=== PATIENT | male | born 1955 | race Caucasian/White ===

== ENCOUNTER 2017-01-12 18:34 | Emergency (ER) | payer OTHER ==
[~2017-01-12] VITALS: Ht 167.6 cm; Wt 79.0 kg
[2017-01-12 18:42] VITALS: BP 106/63; PULSE 98; RESP 18; TEMP 98.4; O2SAT 96
[2017-01-12 18:52] VITALS: O2SAT 94
--- NOTE | 2017-01-12 18:57 | PD ---
HPI Chief Complaint: Alcohol/Drug Intoxication Time Seen by Provider: 18:51 Travel History International Travel<30 days: No Contact w/Intl Traveler<30days: No Traveled to known affect area: No History of Present Illness HPI Patient comes in by EMS after by since the patient laying on the ground. Patient states that he was drinking today to the point where he got drunk. Patient is uncertain how much he drank, because he does not keep track. Per EMS when they arrived patient is awake and alert stating he was just resting. Patient is uncertain as to what happened. Patient normally walks with a cane secondary to issues with his right lower extremity. Patient is uncertain of his last tetanus shot. Patient also complaining of pain around his left periorbital where there is an abrasion. Denies any headache, neck pain, back pain, chest pain, shortness of breath, nausea, vomiting, numbness or tingling anywhere, or fevers. PFSH Past Medical History Diminished Hearing: No Hypertension: Yes Tetanus Vaccination: < 5 Years Influenza Vaccination: Yes Past Surgical History Appendectomy: Yes Tonsillectomy: Yes Social History Alcohol Use: Yes (DAILY BEERS) Tobacco Use: Yes (1PACK A WEEK) Substance Use: No Allergies-Medications (Allergen,Severity, Reaction): Coded Allergies: No Known Allergies (Unverified , 01/12/17) Reported Meds & Prescriptions Reported Meds & Active Scripts Active No Active Prescriptions or Reported Medications Review of Systems ROS Limitations: Intoxication Except as stated in HPI: all other systems reviewed are Neg Physical Exam Exam Limitations: Intoxication Narrative GENERAL: Well-developed, overly nourished, in no acute distress, and non-ill appearing. Alcohol noted on breath. SKIN: Superficial abrasions noted left periorbital temporal aspect of the eyebrow and left elbow. HEAD: Atraumatic. Normocephalic. EYES: Pupils equal and round. EOMI. No scleral icterus. No injection or drainage. ENT: No nasal bleeding or discharge. Mucous membranes pink and moist. Hearing aids noted bilateral ears. NECK: Trachea midline. C-collar in place. CARDIOVASCULAR: Regular rate and rhythm. No murmur appreciated. RESPIRATORY: No accessory muscle use. No respiratory distress. Clear to auscultation. Breath sounds equal bilaterally. GASTROINTESTINAL: Abdomen soft, non-tender, nondistended. Hepatic and splenic margins not palpable. No pulsatile mass. MUSCULOSKELETAL: No obvious deformities. No clubbing. No cyanosis. No edema. Full range of motion. Shoulder:FROM equal BL with passive flexion, extension, Abduction, Adduction, internal/external rotation, and pronation/supination. Sensation equal BL deltoid muscles. Pulses equal BL distal to injury. Capillary refill less than 2 seconds distal to injury and equal BL. FROM distal to injury and equal BL. Strength distal to injury equal BL. NV intact distal to injury equal BL. Flexion and extension of thumb equal BL. Equal strength and movement with abduction/adductions of BL fingers. [employer] Person Dishwasher strength equal BL. NEUROLOGICAL: Awake and alert. No obvious cranial nerve deficits. Motor grossly within normal limits. Normal speech. PSYCHIATRIC: Appropriate mood and affect; insight and judgment normal. Data Data Last Documented VS Vital Signs Date Time Temp Pulse Resp B/P Pulse Ox O2 Delivery O2 Flow Rate FiO2 01/12/17 23:00 93 18 124/70 94 Room Air 01/12/17 19:35 2 01/12/17 18:42 98.4 Orders Complete Blood Count With Diff (01/12/17 18:46) Basic Metabolic Panel (Bmp) (01/12/17 18:46) Alcohol (Ethanol) (01/12/17 18:46) Prothrombin Time / Inr (Pt) (01/12/17 18:46) Act Partial Throm Time (Ptt) (01/12/17 18:46) Iv Access Insert/Monitor (01/12/17 18:46) Ecg Monitoring (01/12/17 18:46) Oximetry (01/12/17 18:46) Sodium Chloride 0.9% Flush (Ns Flush) (01/12/17 19:00) Ct Brain W/O Iv Contrast(Rout) (01/12/17 18:46) Ct Cerv Spine W/O Contrast (01/12/17 18:46) Ct Facial Bones W/O Iv Cont (01/12/17 18:46) Wound Care (01/12/17 18:54) Labs Laboratory Tests Test 01/12/17 19:00 White Blood Count 10.6 TH/MM3 Red Blood Count 4.57 MIL/MM3 Hemoglobin 15.0 GM/DL Hematocrit 43.2 % Mean Corpuscular Volume 94.4 FL Mean Corpuscular Hemoglobin 32.8 PG Mean Corpuscular Hemoglobin 34.7 % Concent Red Cell Distribution Width 14.1 % Platelet Count 250 TH/MM3 Mean Platelet Volume 8.6 FL Neutrophils (%) (Auto) 54.3 % Lymphocytes (%) (Auto) 33.8 % Monocytes (%) (Auto) 8.0 % Eosinophils (%) (Auto) 2.8 % Basophils (%) (Auto) 1.1 % Neutrophils # (Auto) 5.8 TH/MM3 Lymphocytes # (Auto) 3.6 TH/MM3 Monocytes # (Auto) 0.9 TH/MM3 Eosinophils # (Auto) 0.3 TH/MM3 Basophils # (Auto) 0.1 TH/MM3 CBC Comment DIFF FINAL Differential Comment Prothrombin Time 10.6 SEC Prothromb Time International 1.0 RATIO Ratio Activated Partial 27.7 SEC Thromboplast Time Sodium Level 133 MEQ/L Potassium Level 3.5 MEQ/L Chloride Level 100 MEQ/L Carbon Dioxide Level 22.3 MEQ/L Anion Gap 11 MEQ/L Blood Urea Nitrogen 11 MG/DL Creatinine 0.74 MG/DL Estimat Glomerular Filtration 107 ML/MIN Rate Random Glucose 99 MG/DL Calcium Level 8.5 MG/DL Ethyl Alcohol Level 300 MG/DL MDM Medical Decision Making Medical Screen Exam Complete: Yes Emergency Medical Condition: Yes Interpretation(s) CT of the head, neck, and face were obtained and read by radiology showed no acute abnormalities. Differential Diagnosis Alcohol intoxication, electrolyte abnormality, dehydration, intracranial hemorrhage, fracture, strain, abrasion, laceration, other Narrative Course Patient presents with closed head injury. There was no evidence of cranial or intracranial injury noted on CT of the head and no evidence of fracture or injury to cervical spine on C-spine CT. [place] score of 15. The neurologic exam is normal. The patient is awake and aware and motor sensory exams are normal. There is no clinical evidence to support intracranial injury or bleed. The patient suffered abrasions. The abrasions are very superficial and nonrepairable. There was no evidence to suggest foreign bodies. Visual and tactile exams were unremarkable. There was no evidence of neurovascular injury as well. The patients wounds were cleaned and dressed. The patient was given signs and symptom warnings for infection, such as increasing pain, redness, swelling, associated heat, pus or fever. The patient was given instructions for timely follow up. The patient agreed with plan of care. Patient was seen and examined. Patient will be monitored in the emergency department until clinically sober and able to ambulate on their own or until a sober responsible adult comes to pick them up. RN is aware of this. Discussed patient with Dr. Estrada, who is in agreement with plan of care and disposition. Diagnosis Primary Impression: Head injury Qualified Code: S09.90XA - Head injury, initial encounter Additional Impressions: Abrasions of multiple sites Alcohol intoxication Qualified Code: F10.920 - Alcohol intoxication, uncomplicated Patient Instructions: Abrasion (GEN), Alcohol Intoxication (ED), General Instructions, Head Injury (ED) Additional Instructions: Follow-up with your primary care physician in 2-5 days for reevaluation. Cut back on drinking. Return to the emergency department if symptoms get worse. Scripts No Active Prescriptions or Reported Meds Disposition: 01 DISCHARGE HOME Condition: Stable Levon Luna January 12, 2017 18:57
[2017-01-12] MEDS ORDERED: SODIUM CHLORIDE 0.9% FLUSH 10 ML FLUSH IV FLUSH PRN (19:00)
[2017-01-12 19:15] LABS: AUTOMATED NEUTROPHIL # 5.8 TH/MM3 (1.8-7.7); BASOPHIL # 0.1 TH/MM3 (0-0.2); BASOPHIL % 1.1 % (0.0-2.0); EOSINOPHIL # 0.3 TH/MM3 (0-0.4); EOSINOPHIL % 2.8 % (0.0-4.0); HEMATOCRIT 43.2 % (39.0-51.0); HEMO FLAGS DIFF FINAL; LYMPH % 33.8 % (9.0-44.0); LYMPHOCYTE # 3.6 TH/MM3 (1.0-4.8); MEAN CELL VOLUME 94.4 FL (80.0-100.0); MEAN CORPUSCULAR HEMOGLOBIN 32.8 PG (27.0-34.0); MEAN CORPUSCULAR HGB CONC 34.7 % (32.0-36.0); NEUT % 54.3 % (16.0-70.0); PLATELET COUNT 250 TH/MM3 (150-450); RED BLOOD COUNT 4.57 MIL/MM3 (4.50-5.90); RED CELL DISTRIBUTION WIDTH 14.1 % (11.6-17.2); WHITE BLOOD COUNT 10.6 TH/MM3 (4.0-11.0)
--- NOTE | 2017-01-12 19:16 | RADRPT ---
EXAM DATE/TIME: 01/12/2017 19:08 [facility] COMPARISON: CT BRAIN W/O CONTRAST, September 01, 2015, 17:28. INDICATIONS : Fall RADIATION DOSE: 42.70 CTDIvol (mGy) MEDICAL HISTORY : Hypertension. SURGICAL HISTORY : Tonsillectomy. Appendectomy. ENCOUNTER: Initial ACUITY: 1 day PAIN SCALE: 1/10 LOCATION: Left cranial TECHNIQUE: Multiple contiguous axial images were obtained of the head. Using automated exposure control and adj ustment of the mA and/or kV according to patient size, radiation dose was kept as low as reasonably a chievable to obtain optimal diagnostic quality images. FINDINGS: CEREBRUM: The ventricles are normal for age. No evidence of midline shift, mass lesion, hemorrhage or acute in farction. No extra-axial fluid collections are seen. POSTERIOR FOSSA: The cerebellum and brainstem are intact. The 4th ventricle is midline. The cerebellopontine angle i s unremarkable. EXTRACRANIAL: The visualized portion of the orbits is intact. SKULL: The calvaria is intact. No evidence of skull fracture. CONCLUSION: Normal examination. Bill Stewart MD on January 12, 2017 at 19:12 Board Certified Radiologist. This report was verified electronically.
[2017-01-12 19:27] LABS: APTT (PATIENT) 27.7 SEC (24.3-30.1); PROTHROMBIN TIME - PATIENT 10.6 SEC (9.8-11.6)
[2017-01-12 19:35] VITALS: BP 118/67; PULSE 83; RESP 18; O2SAT 97
--- NOTE | 2017-01-12 19:36 | RADRPT ---
EXAM DATE/TIME: 01/12/2017 19:08 [facility] COMPARISON: CT CERVICAL SPINE W/O CONTRAST, September 01, 2015, 17:28. INDICATIONS : Fall RADIATION DOSE: 20.39 CTDIvol (mGy) MEDICAL HISTORY : Hypertension. SURGICAL HISTORY : Tonsillectomy. Appendectomy. ENCOUNTER: Initial ACUITY: 1 day PAIN SCALE: 1/10 LOCATION: neck TECHNIQUE: Volumetric scanning of the cervical spine was performed. Multiplanar reconstructions in the sagittal, coronal and oblique axial planes were performed. Using automated exposure control and adjustment o f the mA and/or kV according to patient size, radiation dose was kept as low as reasonably achievable to obtain optimal diagnostic quality images. FINDINGS: There is slight right convex cervical scoliosis. Minimal anterolisthesis of C4 relative to C5 is a st able appearance. There is no evidence of fracture. No significant bony canal compromise is present. T here is degenerative change throughout with small endplate osteophytes at multiple levels and fairly severe posterior facet arthropathy at multiple levels. Mild multilevel bony foraminal stenosis is not ed, similar to prior. There is no evidence of paraspinal hematoma. CONCLUSION: No acute bony injury in the cervical spine. Bill Stewart MD on January 12, 2017 at 19:30 Board Certified Radiologist. This report was verified electronically.
[2017-01-12 19:46] LABS: BICARBONATE 22.3 MEQ/L (21.0-32.0); POTASSIUM 3.5 MEQ/L (3.5-5.1)
--- NOTE | 2017-01-12 19:52 | RADRPT ---
EXAM DATE/TIME: 01/12/2017 19:08 [facility] COMPARISON: No previous studies available for comparison. INDICATIONS : Fall, left eyebrow laceration. RADIATION DOSE: 62.39 CTDIvol (mGy) MEDICAL HISTORY : Hypertension. SURGICAL HISTORY : Tonsillectomy. Appendectomy. ENCOUNTER: Initial ACUITY: 1 day PAIN SCORE: 10 LOCATION: Left facial TECHNIQUE: Volumetric scanning of the facial bones was performed. Using automated exposure control and adjustme nt of the mA and/or kV according to patient size, radiation dose was kept as low as reasonably achiev able to obtain optimal diagnostic quality images. FINDINGS: ORBITS: Soft tissue swelling over the left orbit. No evidence of underlying fracture. No evidence of globe in jury or retroconal hematoma. NASAL BONE: The nasal bone and maxillary spine are intact ZYGOMATIC ARCHES: Symmetric without evidence of fracture. SINUSES: The maxillary, ethmoid and frontal sinuses are intact. No air-fluid levels seen. NASAL CAVITY: The nasal septum is intact and midline. The lacrimal ducts are intact. SOFT TISSUES: No radiopaque foreign bodies seen. No soft-tissue swelling is seen. INTRACRANIAL: No intracranial air seen. CRIBIFORM PLATE: Grossly intact. CONCLUSION: No evidence of facial bone fracture. Bill Stewart MD on January 12, 2017 at 19:49 Board Certified Radiologist. This report was verified electronically.
[2017-01-12 23:00] VITALS: BP 124/70; PULSE 93; RESP 18; O2SAT 94
== END 2017-01-13 05:12 | disposition home or self-care (01) ==
LOC: NEPE 18:34 → NEPD 01-13 05:12
DX: S09.90XA Unspecified injury of head, initial encounter (principal); S00.212A Abrasion of left eyelid and periocular area, initial encounter; S50.312A Abrasion of left elbow, initial encounter; F10.129 Alcohol abuse with intoxication, unspecified; I10 Essential (primary) hypertension; F17.210 Nicotine dependence, cigarettes, uncomplicated; X58.XXXA Exposure to other specified factors, initial encounter; Y92.89 Other specified places as the place of occurrence of the external cause
CPT/HCPCS: 70450; 70486; 72125; 80048; 80307; 85025; 85610; 85730